=== PATIENT | female | born 1960 | race Caucasian/White ===

== ENCOUNTER 2016-03-27 08:55 | Day surgery (SDC) | payer BC, OTHER ==
[2016-03-24 14:43] VITALS: BMI 50.9
[2016-03-27 11:00] VITALS: TEMP 97.5
[2016-03-27 12:25] LABS: BASOPHIL 1.1 % (0-2.0); EOSINOPHIL 2.1 % (0-4.5); MCH 27.5 pg (25.7-33.7); MCHC 32.7 g/dl (32.0-36.0); MEAN CELL VOLUME 84.2 fl (80-96); MEAN PLT VOLUME 7.9 fl (7.5-11.1); NEUTROPHILS 63.5 % (42.8-82.8); PLATELET COUNT 368 K/MM3 (134-434); RDW 14.4 % (11.6-15.6); WHITE BLOOD COUNT 9.1 K/mm3 (4.0-10.0)
[2016-03-27 12:36] VITALS: BP 136/62; PULSE 52
[2016-03-27 12:46] LABS: ALBUMIN 3.6 g/dl (3.4-5.0); ANION GAP 7 (8-16); BILIRUBIN,TOTAL 0.5 mg/dL (0.2-1.0); C-REACTIVE PROTEIN 0.6 MG/DL (0.00-0.3); CALCIUM 9.2 mg/dL (8.5-10.1); CO2 30 mmol/L (21-32); CREATININE 0.7 mg/dL (0.55-1.02); GLUCOSE,RANDOM 100 mg/dL (74-106); SGOT/AST 16 U/L (15-37)
[2016-03-27 12:50] LABS: SGPT/ALT 24 U/L (12-78)
[2016-03-27 12:51] LABS: ALK PHOS 83 U/L (45-117)
[2016-03-27 12:52] LABS: INR 1.06 (0.82-1.09); PROTHROMBIN TIME (PATIENT) 11.7 SEC (9.98-11.88)
[2016-03-27 12:53] LABS: FERRITIN 33.104 ng/ml (6.9-282.5)
--- NOTE | 2016-03-28 11:55 | PATH ---
Surgical Pathology Report Patient Name: KALYANI DIA [facility]. Rec. #: [id number] /Age/Gender: 1960 (Age: 56) / F Account: [id number] Location: U-ENDOSCOPY Taken: 03/27/2016 Received: 03/27/2016 Reported: 03/28/2016 Physicians: Antelmo Simmons M.D. Specimen(s) Received A: POLYP RECTUM B: POLYP SIGMOID COLON C: POLYP DESCENDING COLON D: POLYP TRANSVERSE COLON E: BX LARGE POLYPS CECUM F: BX POLYP RIGHT COLON Clinical History Colon screening, history of diverticulosis Polyps, diverticulosis, multiple polyposis syndrome Final Diagnosis A. RECTUM, BIOPSY: HYPERPLASTIC POLYP. B. COLON, SIGMOID, POLYPECTOMY: MULTIPLE PORTIONS OF TUBULOVILLOUS ADENOMA. NO INVASIVE CARCINOMA OR HIGH GRADE DYSPLASIA IDENTIFIED. C. COLON, DESCENDING, BIOPSY: TUBULAR ADENOMA. D. COLON, TRANSVERSE, BIOPSY: TUBULAR ADENOMA. E. COLON, CECUM, BIOPSY: MULTIPLE PORTIONS OF TUBULOVILLOUS ADENOMA. NO INVASIVE CARCINOMA OR HIGH GRADE DYSPLASIA IDENTIFIED. F. COLON, RIGHT, BIOPSY: TUBULOVILLOUS ADENOMA. NO INVASIVE CARCINOMA OR HIGH GRADE DYSPLASIA IDENTIFIED. Comment: Completeness of resection is best assessed by the performing endoscopist. Recommend correlation with clinical findings and followed as clinically indicated. Electronically Signed Robert Granados M.D. Gross Description A. Received in formalin, labeled "polyp rectum" are 2 jane, irregular portions of soft tissue averaging 0.3 cm. in greatest dimension. The specimens are submitted in toto in one cassette. B. Received in formalin, labeled "sigmoid colon polyp," is a 2.0 x 1.4 x 0.3 cm aggregate of multiple jane, irregular to polypoid portions of soft tissue. The formalin is filtered and the specimen is entirely submitted in one cassette. C. Received in formalin, labeled "polyp descending colon" are 3 jane, irregular portions of soft tissue ranging from 0.1-0.3 cm. in greatest dimension. The specimens are submitted in toto in one cassette. D. Received in formalin, labeled "polyp transverse colon" are 3 jane, irregular portions of soft tissue ranging from 0.3-0.6 cm. in greatest dimension. The specimens are submitted in toto in one cassette. E. Received in formalin, labeled "large polyps cecum," is a 1.0 x 0.7 x 0.2 cm aggregate of jane soft tissue fragments. The formalin is filtered and the specimen is entirely submitted in one cassette. F. Received in formalin, labeled "polyp right colon" are 2 jane, irregular portions of soft tissue measuring 0.2 and 0.4 cm. in greatest dimension. The specimens are submitted in toto in one cassette. 03/27/201603/27/2016
== END 2016-03-27 12:35 | disposition home or self-care (01) ==
LOC: JASU-ENDO 08:55
PROVIDERS: ATTEND Internal Medicine Gastroenterology
PROC: 0DBL8ZX Excision of Transverse Colon, Via Natural or Artificial Opening Endoscopic, Diagnostic (ICD-10-PCS; 2016-03-27)
PROC: 0DBM8ZX Excision of Descending Colon, Via Natural or Artificial Opening Endoscopic, Diagnostic (ICD-10-PCS; 2016-03-27)
PROC: 0DBP8ZX Excision of Rectum, Via Natural or Artificial Opening Endoscopic, Diagnostic (ICD-10-PCS; 2016-03-27)
PROC: 0DBH8ZX Excision of Cecum, Via Natural or Artificial Opening Endoscopic, Diagnostic (ICD-10-PCS; 2016-03-27)
PROC: 0DBL8ZX Excision of Transverse Colon, Via Natural or Artificial Opening Endoscopic, Diagnostic (ICD-10-PCS; 2016-03-27)
PROC: 0DBK8ZX Excision of Ascending Colon, Via Natural or Artificial Opening Endoscopic, Diagnostic (ICD-10-PCS; 2016-03-27)
PROC: 0DBN8ZX Excision of Sigmoid Colon, Via Natural or Artificial Opening Endoscopic, Diagnostic (ICD-10-PCS; 2016-03-27)
PROC: 0DBN8ZX Excision of Sigmoid Colon, Via Natural or Artificial Opening Endoscopic, Diagnostic (ICD-10-PCS; principal; 2016-03-27 10:00)
DX: Z12.11 Encounter for screening for malignant neoplasm of colon (principal); K62.1 Rectal polyp; D12.4 Benign neoplasm of descending colon; D12.5 Benign neoplasm of sigmoid colon; D12.3 Benign neoplasm of transverse colon; D12.2 Benign neoplasm of ascending colon; D12.0 Benign neoplasm of cecum; K57.30 Diverticulosis of large intestine without perforation or abscess without bleeding
CPT/HCPCS: 36415; 80053; 82378; 82728; 83540; 83550; 85025; 85610; 86140; 88305-TC

== ENCOUNTER 2020-05-03 20:54 | Inpatient (IN) | payer BC, OTHER ==
[2020-05-03 22:55] LABS: BASO % 1.2 % (0-2.0); EOS % 1.2 % (0-4.5); HEMATOCRIT 37.9 % (32.4-45.2); HEMOGLOBIN 12.5 GM/dL (10.7-15.3); LYMPH % 18.6 % (8-40); MCH 28.3 pg (25.7-33.7); MEAN CELL VOLUME 85.8 fl (80-96); MEAN PLT VOLUME 7.6 fl (7.5-11.1); MONO % 6.3 % (3.8-10.2); NEUT % 72.7 % (42.8-82.8); PLATELET COUNT 455 K/MM3 (134-434); RBC 4.42 M/mm3 (3.60-5.2); WHITE BLOOD COUNT 11.7 K/mm3 (4.0-10.0)
[2020-05-03 23:06] LABS: INR 0.94 (0.83-1.09); PROTHROMBIN TIME (PATIENT) 11.6 SEC (9.7-13.0)
[2020-05-03 23:09] LABS: ACTIVATED PTT 34.6 SECONDS (25.2-36.5)
[2020-05-03 23:15] LABS: CHLORIDE 95 mmol/L (98-107); POTASSIUM 4.7 mmol/L (3.5-5.1); SODIUM 134 mmol/L (136-145)
[2020-05-03 23:18] LABS: CALCIUM 9.9 mg/dL (8.5-10.1)
[2020-05-03 23:19] LABS: ALBUMIN 3.8 g/dl (3.4-5.0); ANION GAP 5 MMOL/L (8-16); BLOOD UREA NITROGEN 21.4 mg/dL (7-18); CO2 34 mmol/L (21-32); GLUCOSE,RANDOM 156 mg/dL (74-106); LIPASE 295 U/L (73-393); MAGNESIUM 2.3 mg/dL (1.8-2.4)
[2020-05-03 23:22] LABS: CREATININE 1.2 mg/dL (0.55-1.3); PHOSPHOROUS 4.1 mg/dL (2.5-4.9); SGOT/AST 30 U/L (15-37); SGPT/ALT 39 U/L (13-61)
[2020-05-03 23:23] LABS: BILIRUBIN,TOTAL 0.5 mg/dL (0.2-1); TOT PROT 7.7 g/dl (6.4-8.2)
[2020-05-03 23:25] LABS: ALK PHOS 98 U/L (45-117)
[2020-05-03] MEDS ORDERED: SODIUM CHLORIDE 0.9% 500 ML INFUS.BAG IV ONE (23:33)
[2020-05-03 23:44] LABS: URINE APPEARANCE CLEAR; URINE BILIRUBIN NEGATIVE (NEGATIVE); URINE COLOR YELLOW; URINE GLUCOSE (UA) 3+ (NEGATIVE); URINE KETONE TRACE (NEGATIVE); URINE LEUK ESTERASE NEGATIVE (NEGATIVE); URINE NITRITE NEGATIVE (NEGATIVE); URINE PROTEIN NEGATIVE (NEGATIVE); URINE UROBILINOGEN 0.2 mg/dL (0.2-1.0)
[2020-05-04] MEDS ORDERED: ACETAMINOPHEN 1000 MG/100 ML VIAL (NON FORMULARY) IVPB ONE (01:22)
[2020-05-04] MEDS ORDERED: ACETAMINOPHEN INJECTION 100 ML IVPB ONE (01:24)
[2020-05-04] MEDS ORDERED: ONDANSETRON 4 MG/2 ML VIAL IVPUSH ONE (04:21)
[2020-05-04] MEDS ORDERED: MORPHINE SULFATE 2 MG/ML VIAL IVPUSH PRN (05:07)
[2020-05-04] MEDS ORDERED: METOCLOPRAMIDE HCL INJECTION 10 MG/2 ML VIAL IVPUSH PRN (05:11)
[2020-05-04] MEDS ORDERED: PANTOPRAZOLE SODIUM 40 MG VIAL IVPUSH SCH (05:13)
[2020-05-04] MEDS ORDERED: SODIUM CHLORIDE 1,000 ML IV SCH (05:15)
[2020-05-04] MEDS ORDERED: PANTOPRAZOLE SODIUM 40 MG VIAL ONE (05:40)
[2020-05-04] MEDS ORDERED: INSULIN SLIDING SCALE (NOVOLOG) 1 VIAL SQ SCH ×2 (06:00→07:00)
[2020-05-04] MEDS ORDERED: metoPROLOL SUCCINATE 25 MG TAB.SR.24H (FP) PO SCH (07:45)
[2020-05-04] MEDS: INSULIN SLIDING SCALE (NOVOLOG) 1 VIAL SQ SCH ×3 (09:05→17:14)
[2020-05-04] MEDS ORDERED: METOCLOPRAMIDE HCL INJECTION 10 MG/2 ML VIAL ONE (09:13)
[2020-05-04] MEDS ORDERED: MORPHINE SULFATE 2 MG/ML VIAL ONE (09:14)
[2020-05-04] MEDS ORDERED: PANTOPRAZOLE 40 MG TABLET PO SCH (10:00)
[2020-05-04] MEDS ORDERED: amLODIPine BESYLATE 5 MG TABLET (FP) PO SCH (10:00)
[2020-05-04] MEDS ORDERED: ENOXAPARIN NA (PORCINE) 40 MG/0.4 ML DISP.SYRIN SQ SCH (10:00)
[2020-05-04] MEDS ORDERED: ENOXAPARIN NA (PORCINE) 40 MG/0.4 ML DISP.SYRIN SQ ONE (10:43)
[2020-05-04] MEDS ORDERED: PANTOPRAZOLE 40 MG TABLET ONE (10:43)
[2020-05-04] MEDS ORDERED: amLODIPine BESYLATE 5 MG TABLET (FP) ONE ×2 (10:43→10:45)
[2020-05-04 11:38] LABS: BASO % 0.6 % (0-2.0); EOS % 0.7 % (0-4.5); HEMATOCRIT 35.9 % (32.4-45.2); HEMOGLOBIN 12.2 GM/dL (10.7-15.3); LYMPH % 17.2 % (8-40); MCH 29.1 pg (25.7-33.7); MEAN CELL VOLUME 85.5 fl (80-96); MEAN PLT VOLUME 7.3 fl (7.5-11.1); MONO % 5.3 % (3.8-10.2); NEUT % 76.2 % (42.8-82.8); PLATELET COUNT 404 K/MM3 (134-434)
[2020-05-04 11:42] LABS: POTASSIUM 4.7 mmol/L (3.5-5.1)
[2020-05-04 11:43] LABS: CALCIUM 9.3 mg/dL (8.5-10.1)
[2020-05-04 11:44] LABS: ALBUMIN 3.4 g/dl (3.4-5.0); BLOOD UREA NITROGEN 15.6 mg/dL (7-18)
[2020-05-04 11:53] LABS: CREATININE 0.9 mg/dL (0.55-1.3)
[2020-05-04 11:55] LABS: BILIRUBIN,TOTAL 0.4 mg/dL (0.2-1); TOT PROT 6.8 g/dl (6.4-8.2)
[2020-05-04 12:39] VITALS: BMI 60.0
[2020-05-04 14:21] VITALS: BP 123/63; PULSE 63; TEMP 98
[2020-05-05] MEDS ORDERED: MULTIVITAMINS (DAILY MVI) TABLET (FP) PO SCH (10:00)
[2020-05-05] MEDS ORDERED: ASPIRIN COATED 81 MG TABLET.EC PO SCH (10:00)
[2020-05-05] MEDS ORDERED: FUROSEMIDE 20 MG TABLET (FP) PO SCH (10:00)
[2020-05-05] MEDS ORDERED: LISINOPRIL 10 MG TABLET PO SCH (10:00)
[2020-05-05] MEDS ORDERED: ATORVASTATIN CA 10 MG TABLET (FP) PO SCH (22:00)
== END 2020-05-04 17:47 | disposition home or self-care (01) | DRG 392 ==
LOC: JER 20:54 → JERBED 05-04 03:26 → OBSVTOIN 05-04 05:08 → J7W 05-04 12:11
PROVIDERS: ADMIT Internal Medicine; ATTEND Internal Medicine
DX: A08.4 Viral intestinal infection, unspecified (principal); Z68.44 Body mass index [BMI] 60.0-69.9, adult; E87.2 Acidosis; K58.9 Irritable bowel syndrome, unspecified; R10.9 Unspecified abdominal pain; E66.01 Morbid (severe) obesity due to excess calories; K76.0 Fatty (change of) liver, not elsewhere classified; I10 Essential (primary) hypertension; E11.65 Type 2 diabetes mellitus with hyperglycemia; E78.5 Hyperlipidemia, unspecified
CPT/HCPCS: 36415; 71046-TC-FY; 74177-TC; 80053; 81003; 82962; 83036; 83605; 83690; 83735; 84100; 84484; 85025; 85610; 85730; 87077; 87086; 93005; 93010; 99285-25; C9803; G0378; J0131; Q9967; U0003